=== PATIENT | female | born 1955 | race Caucasian/White ===

== ENCOUNTER 2018-04-20 22:35 | Inpatient (IN) | payer OTHER ==
[2018-04-20] MEDS ORDERED: ONDANSETRON 4 MG INJ IV (23:00)
[2018-04-20] MEDS ORDERED: BISACODYL (EC) 5 MG TAB PO (23:00)
[2018-04-20] MEDS ORDERED: ACETAMINOPHEN 325 MG TAB PO (23:00)
[2018-04-20] MEDS ORDERED: NACL 0.9% 3 ML SYG IV (23:00)
[2018-04-20] MEDS ORDERED: DOCUSATE SODIUM 100 MG CAP PO (23:00)
[2018-04-20] MEDS ORDERED: morphine 2 MG INJ IV (23:00)
[2018-04-20] MEDS ORDERED: RANITIDINE 150 MG TAB PO (23:00)
[2018-04-20 23:17] LABS: ADD MAN DIFF? NO
[2018-04-20 23:19] LABS: BASOPHILS % 0.2 % (0.0-2.0); EOSINOPHILS # 0.3 10^3/ul (0.0-0.5); EOSINOPHILS % 2.2 % (0.0-7.0); HEMATOCRIT 36.9 % (37.0-47.0); HEMOGLOBIN 11.8 g/dl (12.0-16.0); LYMPHOCYTES # 2.5 10^3/ul (0.8-2.9); LYMPHOCYTES % 17.5 % (15.0-51.0); MEAN CORPUSCULAR HEMOGLOBIN 27.6 pg (29.0-33.0); MEAN CORPUSCULAR VOLUME 86.2 fl (82.0-101.0); MEAN PLATELET VOLUME 9.7 fl (7.4-10.4); MONOCYTES % 6.8 % (0.0-11.0); NEUTROPHIL # 10.4 10^3/ul (1.6-7.5); NEUTROPHILS % 72.7 % (39.0-77.0); PLATELET COUNT 385 10^3/UL (140-415); RED BLOOD COUNT 4.28 10^6/ul (4.20-5.40); RED CELL DISTRIBUTION WIDTH 15.8 % (11.5-14.5)
[2018-04-20 23:19] LABS: WHITE BLOOD COUNT 14.3 10^3/ul (4.8-10.8)
[2018-04-20] MEDS ORDERED: GLUCAGON 1 MG INJ IM (23:45)
[2018-04-20] MEDS ORDERED: DEXTROSE 50% 50 ML SYRINGE IV ×2 (23:45)
[2018-04-20] MEDS ORDERED: GLUCOSE GEL 15 GRAM TUBE BUCCAL (23:45)
[2018-04-20] MEDS ORDERED: GLUCOSE GEL 15 GRAM TUBE PO ×2 (23:45)
[2018-04-20 23:47] LABS: ALANINE AMINOTRANSFERASE 16 IU/L (13-69); ALBUMIN 3.8 g/dl (3.3-4.9); ALBUMIN/GLOBULIN RATIO 1.08; ALKALINE PHOSPHATASE 101 IU/L (42-121); ANION GAP 11 (8-16); ASPARTATE AMINO TRANSFERASE 18 IU/L (15-46); BILIRUBIN,INDIRECT 0.9 mg/dl (0-1.1); BILIRUBIN,TOTAL 0.9 mg/dl (0.2-1.3); BLOOD UREA NITROGEN 20 mg/dl (7-20); CARBON DIOXIDE 33 mmol/L (21-31); CHLORIDE 99 mmol/L (97-110); CREATINE KINASE 41 IU/L (23-200); CREATININE 0.99 mg/dl (0.44-1.00); GLUCOSE 159 mg/dl (70-220); POTASSIUM 3.7 mmol/L (3.5-5.1); SODIUM 139 mmol/L (135-144); TOTAL PROTEIN 7.3 g/dl (6.1-8.1)
[2018-04-21] LABS: B-TYPE NATRIURETIC PEPTIDE 414 PG/ML (0-125); CK INDEX 0.8; CK-MB 0.31 ng/ml (0.0-2.4); TROPONIN-I < 0.010 ng/ml (0.000-0.120)
[2018-04-21] MEDS: ACCU-CHEK XX (02:00)
[2018-04-21] MEDS: PANTOPRAZOLE (EC) 40 MG TAB PO (05:33)
[2018-04-21] MEDS: LEVOTHYROXINE 150 MCG TAB PO (06:27)
[2018-04-21] MEDS: INSULIN ASPART [NOVOLOG] 3 ML PEN SC ×4 (07:55→20:54)
[2018-04-21] MEDS: HYDROCHLOROTHIAZIDE 25 MG TAB PO (08:29)
[2018-04-21] MEDS: LOSARTAN 50 MG TAB PO (08:29)
[2018-04-21] MEDS: FUROSEMIDE 20 MG INJ IV (08:29)
[2018-04-21] MEDS: METOPROLOL (XL) 50 MG TAB PO (08:30)
[2018-04-21] MEDS: ASPIRIN (EC) 81 MG TAB PO (08:30)
[2018-04-21] MEDS: ASPIRIN 81 MG TAB PO (08:30)
[2018-04-21] MEDS: LORATADINE 10 MG TAB PO (08:30)
[2018-04-21 10:06] LABS: ADD MAN DIFF? NO
[2018-04-21 10:17] LABS: BASOPHIL # 0.1 10^3/ul (0.0-0.1); BASOPHILS % 0.6 % (0.0-2.0); EOSINOPHILS # 0.3 10^3/ul (0.0-0.5); HEMATOCRIT 37.6 % (37.0-47.0); HEMOGLOBIN 11.9 g/dl (12.0-16.0); LYMPHOCYTES # 2.6 10^3/ul (0.8-2.9); MEAN CORPUSCULAR HGB CONC 31.6 g/dl (32.0-37.0); MEAN CORPUSCULAR VOLUME 85.5 fl (82.0-101.0); MEAN PLATELET VOLUME 10.3 fl (7.4-10.4); MONOCYTE # 0.8 10^3/ul (0.3-0.9); MONOCYTES % 6.4 % (0.0-11.0); NEUTROPHIL # 8.6 10^3/ul (1.6-7.5); NEUTROPHILS % 69.4 % (39.0-77.0); PLATELET COUNT 391 10^3/UL (140-415); RED CELL DISTRIBUTION WIDTH 15.9 % (11.5-14.5)
[2018-04-21 10:17] LABS: WHITE BLOOD COUNT 12.4 10^3/ul (4.8-10.8)
[2018-04-21 10:47] LABS: CREATINE KINASE 67 IU/L (23-200)
[2018-04-21 11:00] LABS: CK INDEX 0.6; CK-MB 0.43 ng/ml (0.0-2.4); TROPONIN-I < 0.010 ng/ml (0.000-0.120)
[2018-04-21 11:02] LABS: ALANINE AMINOTRANSFERASE 14 IU/L (13-69); ALBUMIN 3.7 g/dl (3.3-4.9); ALBUMIN/GLOBULIN RATIO 1.08; ALKALINE PHOSPHATASE 112 IU/L (42-121); ANION GAP 12 (8-16); ASPARTATE AMINO TRANSFERASE 20 IU/L (15-46); BLOOD UREA NITROGEN 19 mg/dl (7-20); CALCIUM 9.1 mg/dl (8.4-10.2); CARBON DIOXIDE 32 mmol/L (21-31); CHLORIDE 100 mmol/L (97-110); CHOL/HDL RATIO 3.1 RATIO; CHOLESTEROL 137 mg/dl (100-200); CREATININE 0.87 mg/dl (0.44-1.00); GLUCOSE 131 mg/dl (70-220); HDL CHOLESTEROL 44 mg/dl (35-98); LDL CHOLESTEROL,CALCULATED 55 mg/dl; MAGNESIUM 1.8 mg/dl (1.7-2.5); SODIUM 140 mmol/L (135-144); TOTAL PROTEIN 7.1 g/dl (6.1-8.1); TRIGLYCERIDES 190 mg/dl (0-149)
[2018-04-21 14:25] LABS: HEMOGLOBIN A1C 6.7 % (0-5.9)
[2018-04-21] MEDS ORDERED: morphine LIQ (10 MG/5 ML) CUP PO (16:30)
[2018-04-21 17:11] LABS: TROPONIN-I < 0.010 ng/ml (0.000-0.120)
[2018-04-21] MEDS: ATORVASTATIN 80 MG TAB PO (20:42)
[2018-04-22] MEDS: ACCU-CHEK XX (02:00)
[2018-04-22] MEDS: PANTOPRAZOLE (EC) 40 MG TAB PO (05:47)
[2018-04-22] MEDS: INSULIN ASPART [NOVOLOG] 3 ML PEN SC ×2 (07:55→11:16)
[2018-04-22] MEDS: LEVOTHYROXINE 150 MCG TAB PO (07:59)
[2018-04-22] MEDS: ASPIRIN (EC) 81 MG TAB PO (08:15)
[2018-04-22] MEDS: HYDROCHLOROTHIAZIDE 25 MG TAB PO (08:17)
[2018-04-22] MEDS: METOPROLOL (XL) 50 MG TAB PO (08:17)
[2018-04-22] MEDS: LORATADINE 10 MG TAB PO (08:18)
[2018-04-22] MEDS: LOSARTAN 50 MG TAB PO (08:18)
[2018-04-22] MEDS: ASPIRIN 81 MG TAB PO (08:19)
[2018-04-26 14:07] LABS: PROCALCITONIN <0.10 ng/mL (<0.10)
== END 2018-04-22 11:12 | disposition home or self-care (01) | DRG 313 ==
LOC: TEL 22:35
DX: R07.9 Chest pain, unspecified (principal); Z68.42 Body mass index [BMI] 45.0-49.9, adult; I25.10 Atherosclerotic heart disease of native coronary artery without angina pectoris; I10 Essential (primary) hypertension; E03.9 Hypothyroidism, unspecified; K21.9 Gastro-esophageal reflux disease without esophagitis; E66.9 Obesity, unspecified; I27.20 Pulmonary hypertension, unspecified; E11.9 Type 2 diabetes mellitus without complications; G47.33 Obstructive sleep apnea (adult) (pediatric); Z95.0 Presence of cardiac pacemaker
CPT/HCPCS: 71045; 80053; 80061; 82550; 82553; 82962; 83036; 83735; 83880; 84145; 84443; 84484; 85025; 93005; 93306